=== PATIENT | female | born 1960 | race Two or more races ===

== ENCOUNTER 2020-06-03 10:27 | Outpatient (CLI) | payer OTHER, MEDICAID, SELFPAY ==
--- NOTE | ~2020-06-03 | XR_ITS ---
EXAMINATION: XR knee RT min 4V EXAM DATE: 06/03/2020 11:10 INDICATION: Right knee pain, gen pain x 2 wks, no injury . TECHNIQUE: Right knee frontal, crosstable lateral, oblique, sunrise projections for interpretation. There are no prior studies for comparison. FINDINGS: No evidence osteochondral defect or joint body in the right knee joint. There is mild pat ellar lateral subluxation. Mild patellofemoral compartment chondromalacia, primary osteoarthritis. No joint effusion. Tibiofemoral compartment is unremarkable. There are no acute fractures or dislocatio ns identified. There is no subcutaneous gas. The soft tissue is unremarkable. There are no radiop aque foreign bodies. IMPRESSION: Mild right patellofemoral osteoarthritis, mild patellar lateral subluxation. Reviewed, dictated and finalized at location B. STMENT ACCOUNTANT IMPRESSION: Mild right patellofemoral osteoarthritis, mild patellar lateral hooper bluxation.
== END 2020-06-03 10:28 | disposition home or self-care (01) ==
PROVIDERS: PCP Family Medicine; Visit Provider Nurse Practitioner
DX: M25.561 Pain in right knee (principal); M17.11 Unilateral primary osteoarthritis, right knee
CPT/HCPCS: 73564

== ENCOUNTER 2020-10-07 17:02 | Outpatient (CLI) | payer OTHER, MEDICAID, SELFPAY | END 2020-10-07 17:03 | disposition home or self-care (01) | LOC: ANHCOVIDVC 17:02 | PROVIDERS: PCP Family Medicine | DX: Z23 Encounter for immunization (principal) | CPT/HCPCS: 0001A; 91300 ==

== ENCOUNTER 2020-10-28 17:31 | Outpatient (CLI) | payer OTHER, MEDICAID, SELFPAY | END 2020-10-28 17:32 | disposition home or self-care (01) | LOC: ANHCOVIDVC 17:31 | PROVIDERS: PCP Family Medicine | DX: Z23 Encounter for immunization (principal) | CPT/HCPCS: 0002A; 91300 ==